=== PATIENT | male | born 1990 | race African-American/Black ===

== ENCOUNTER 2018-04-20 12:44 | Emergency (ER) | payer MEDICAID ==
[~2018-04-20] VITALS: Ht 185.4 cm; Wt 69.5 kg
[2018-04-20 13:08] VITALS: BP 111/72
--- NOTE | 2018-04-20 13:15 | NUR ---
AFTER PROVIDING URINE SAMPLE, PT AMBULATES TO BED 2, REPORT GIVEN TO JUNO INTERIANO
--- NOTE | 2018-04-20 13:15 | NUR ---
PATIENT PRESENTS TO ED WITH COMPLAINTS OF UPPER ABDOMINAL PAIN X 3 DAYS. PATIENT STATES HE HAS A HX OF KIDNEY STONES AND BELIEVES IT MAY BE RELATED. DENIES V/D; SKIN IS PINK/WARM/DRY; AAOX4 WITH EVEN AND STEADY GAIT; LUNGS CLEAR BL; HR EVEN AND REGULAR; PT DENIES ANY FEVER, CP, SOB, OR COUGH AT THIS TIME; PATIENT STATES PAIN OF 8/10 AT THIS TIME; VSS; PATIENT POSITIONED FOR COMFORT; HOB ELEVATED; BEDRAILS UP X1; BED DOWN. ER MD MADE AWARE OF PT STATUS.
--- NOTE | 2018-04-20 13:15 | NUR ---
Patient ambulated to bed 2. RN evaluating patient at bedside.
[2018-04-20] MEDS ORDERED: NACL 0.9% 500 ML IV ONE ×2 (13:33)
[2018-04-20] MEDS ORDERED: KETOROLAC 30 MG/ML VIAL IVP ONE (13:35)
--- NOTE | 2018-04-20 14:50 | NUR ---
PATIENT TAKEN TO XRAY
--- NOTE | 2018-04-20 15:00 | NUR ---
PATIENT BACK FROM X RAY
--- NOTE | 2018-04-20 15:07 | NUR ---
DR WOODS AT BEDSIDE
[2018-04-20 15:21] VITALS: BP 112/75
--- NOTE | 2018-04-20 15:21 | NUR ---
Patient discharged with v/s stable. Written and verbal after care instructions given and explained. Patient alert, oriented and verbalized understanding of instructions. Ambulatory with steady gait. All questions addressed prior to discharge. ID band removed. Patient advised to follow up with PMD. Rx of MIRALAX AND MOTRIN given. Patient educated on indication of medication including possible reaction and side effects. Opportunity to ask questions provided and answered.
== END 2018-04-20 15:21 | disposition home or self-care (01) ==
LOC: MED 12:44
DX: R10.9 Unspecified abdominal pain (principal); R11.0 Nausea
CPT/HCPCS: 74018; 74176; 81002; 96374; 99284; J1885; J7030

== ENCOUNTER 2018-08-02 23:08 | Emergency (ER) | payer MEDICAID, OTHER ==
[~2018-08-02] VITALS: Ht 185.4 cm; Wt 72.6 kg
[2018-08-02 23:22] VITALS: BP 135/84
--- NOTE | 2018-08-02 23:27 | NUR ---
Pt taken to bed 9.
--- NOTE | 2018-08-02 23:30 | NUR ---
PT PRESENTED ER WITH C/O PAIN TO THE UPPER PART OF BACK, URRUTIA, AND EARS POST STATUS FORK LIFT BATTERY EXPLOSION FROM PT JOB AT 2210 TODAY. PT STATED THE HIS COMPANY ,[employer], DICLINED HIM MEDICAL CARE AFTER A BATTERY THAT HE WAS PUTTING IN A FORK LIFT EXPLODED ON HIM. HE STATED THAT PIECES OF THE BATTERY HIT HIM ON THE BACK AND HEAD. HIS LEFT EAR IS RINGING AND HAS PAIN. HE ALSO STATED HE CAN NOT HEAR IN HIS LEFT EAR. PT ALSO STATED THAT HE INHALED CHEMICALS THAT WERE RELEASED FROM THE BATTERY. PT IS A/O X 4. PAIN LEVEL AT THIS TIME IS 8/10. PT DENIES THAT HE BECOME UNCONSCIOUS AT ANY TIME DURING THE EXPLOSION. PT DENIES FALLING AT THE TIME OF EXPLOSION. SKIN INTACT. NO BRUISING, OR REDDNESS TO SITE, BACK OR HEAD. EVEN AND STEADY GAIT; VSS; PATIENT POSITIONED FOR COMFORT; HOB ELEVATED; BEDRAILS UP X2; BED DOWN. ER MD MADE AWARE OF PT STATUS.
[2018-08-03] MEDS ORDERED: KETOROLAC 60 MG/2 ML VIAL IM ONE (00:30)
[2018-08-03 00:44] VITALS: BP 135/84
--- NOTE | 2018-08-03 00:44 | NUR ---
Patient discharged with v/s stable. Written and verbal after care instructions given and explained. Patient alert, oriented and verbalized understanding of instructions. Ambulatory with steady gait. All questions addressed prior to discharge. ID band removed. Patient advised to follow up with PMD. Rx of MOTRIN was given. Patient educated on indication of medication including possible reaction and side effects. Opportunity to ask questions provided and answered.
== END 2018-08-03 00:44 | disposition home or self-care (01) ==
LOC: MED 23:08
DX: S39.012A Strain of muscle, fascia and tendon of lower back, initial encounter (principal); T70.0XXA Otitic barotrauma, initial encounter; W40.0XXA Explosion of blasting material, initial encounter; Y93.89 Activity, other specified; Y92.89 Other specified places as the place of occurrence of the external cause; Y99.8 Other external cause status
CPT/HCPCS: 99282

== ENCOUNTER 2023-06-10 16:47 | Emergency (ER) | payer MEDICAID, OTHER ==
[~2023-06-10] VITALS: Ht 185.4 cm; Wt 73.5 kg
[2023-06-10 17:30] VITALS: BP 111/72; PULSE 81; RESP 18; TEMP 98.5; O2SAT 98
[2023-06-10] MEDS ORDERED: KETOROLAC 30 MG/ML VIAL IM ONE (19:20)
[2023-06-10] MEDS ORDERED: IBUP-2213 PO (21:43)
[2023-06-10] MEDS ORDERED: LID5T TP (21:43)
[2023-06-10] MEDS ORDERED: CYCL-711 PO (21:43)
[2023-06-10 22:20] VITALS: BP 119/69; PULSE 72; RESP 16; O2SAT 98
== END 2023-06-10 22:20 | disposition home or self-care (01) ==
LOC: MED 16:47
DX: S43.401A Unspecified sprain of right shoulder joint, initial encounter (principal); Z79.899 Other long term (current) drug therapy; Z79.1 Long term (current) use of non-steroidal anti-inflammatories (NSAID); X58.XXXA Exposure to other specified factors, initial encounter; Y92.89 Other specified places as the place of occurrence of the external cause; Y93.89 Activity, other specified; Y99.8 Other external cause status
CPT/HCPCS: 73030; 96372; 99283; J1885; Q0092